=== PATIENT | female | born 1985 | race Caucasian/White ===

== ENCOUNTER 2017-06-15 19:23 | Emergency (ER) | payer MEDICAID, OTHER, SELFPAY ==
[~2017-06-15] VITALS: Ht 160 cm; Wt 90.8 kg
[2017-06-15] MEDS ORDERED: SODIUM CHLORIDE 0.9% 1,000 ML IV ONE (19:53)
[2017-06-15] MEDS ORDERED: SODIUM CHLORIDE FLUSH 10ML SYR IVF ONE (20:00)
[2017-06-15] MEDS ORDERED: FAMOTIDINE 20 MG/2 ML IVPush ONE (20:00)
[2017-06-15] MEDS ORDERED: ONDANSETRON 2MG/ML, 2ML IVPush ONE (20:00)
[2017-06-15] MEDS ORDERED: HYDROmorphone 1 MG/ML, 1ML IVPush PRN (20:00)
[2017-06-15] MEDS ORDERED: SODIUM CHLORIDE 0.9% 1,000ML IVBOLUS ONE (20:00)
[2017-06-15] MEDS ORDERED: HYDROmorphone 1 MG/ML, 1ML ONE (20:01)
[2017-06-15] MEDS ORDERED: ONDANSETRON 2MG/ML, 2ML ONE (20:01)
[2017-06-15 20:09] LABS: ASPARTATE AMINO TRANSFERASE 24 U/L (15-37); BLOOD UREA NITROGEN 6 mg/dL (7-18)
[2017-06-15] MEDS ORDERED: FAMOTIDINE 20 MG/2 ML ONE (20:21)
[2017-06-15 21:24] VITALS: BP 108/54
== END 2017-06-15 21:44 | disposition home or self-care (01) ==
LOC: ED 21:38
DX: K29.00 Acute gastritis without bleeding (principal)
CPT/HCPCS: 36415; 76700; 80053; 81003; 83690; 84703; 85025; 93005; 96361; 96374; 96375; 99285; J1170; J2405; J7030; S0028